=== PATIENT | female | born 1970 | race Caucasian/White ===

== ENCOUNTER 2018-09-20 06:46 | Emergency (ER) | payer OTHER, BC ==
[2018-09-20 07:00] VITALS: BP 137/85
[2018-09-20] MEDS ORDERED: AMOXICILLIN/K CLAV 875/125MG TABLET. PO ONE (07:15)
[2018-09-20] MEDS ORDERED: DIPHTH,PERTUSS(ACELL),TET TOX 0.5 ML DISP.SYRIN. VAX IM ONE (07:15)
[2018-09-20] MEDS ORDERED: diphenhydrAMINE HCL 25 MG CAPSULE PO ONE (07:15)
[2018-09-20] MEDS ORDERED: AMOX1TAB61 PO (07:22)
--- NOTE | 2018-09-20 07:24 | PHYS DOC ---
Past History Past Medical History: Hypothyroid Past Surgical History: Appendectomy, Cholecystectomy, , Hysterectomy, Tonsillectomy Alcohol Use: Occasionally Drug Use: None Adult General Chief Complaint Chief Complaint: LACERATION/AVULSION HPI HPI Patient is a 48-year-old female who presents after cutting her finger on a dog bone. Patient states that she was playing with her dog and there is sharp area on the bone and cut her finger on the bone. She states the injury occurred last night and she was getting a little bit concerned because she has developed some swelling and redness to her finger since sustaining the injury. She reports pain as being mild. She denies any fever. Review of Systems Review of Systems Constitutional: Denies fever or chills [] Cardiovascular: No additional information not addressed in HPI [] Musculoskeletal: Positive right index finger pain[] Integument: Positive finger laceration[] Current Medications Current Medications Current Medications Medications (Trade) Dose Ordered Sig/Skylar Start Time Stop Time Status Last Admin Dose Admin Amoxicillin/ Clavulanate Potassium (Augmentin 875/ 125mg) 1 tab 1X ONCE 09/20/18 07:15 09/20/18 07:16 UNV Diphenhydramine HCl (Benadryl) 25 mg 1X ONCE 09/20/18 07:15 09/20/18 07:16 UNV Diphtheria/ Tetanus/Acell Pertussis (Boostrix) 0.5 ml ONCE ONCE 09/20/18 07:15 09/20/18 07:16 UNV Allergies Allergies Allergies Coded Allergies Type Severity Reaction Last Updated Verified Penicillins Allergy Unknown 09/20/18 Yes Physical Exam Physical Exam Constitutional: Well developed, well nourished, no acute distress, non-toxic appearance. [] Cardiovascular: Regular rate and rhythm [] Lungs & Thorax: Bilateral breath sounds clear to auscultation [] Skin: Right index finger demonstrates a superficial laceration with no active bleeding. There does appear to be some granulation tissue that is present. There is some soft tissue swelling and surrounding erythema. [] Current Patient Data Vital Signs Vital Signs Date Time Temp Pulse Resp B/P (MAP) Pulse Ox O2 Delivery O2 Flow Rate FiO2 09/20/18 07:00 98.0 65 16 99 Room Air EKG EKG [] Radiology/Procedures Radiology/Procedures [] Course & Med Decision Making Course & Med Decision Making Pertinent Labs and Imaging studies reviewed. (See chart for details) Although no animal bite occurred, patient does indicate that DrRadha had been chewing on the bone; therefore, I do suspect that patient may have been exposed to Pasteurella multocida. We'll plan on treating with Augmentin. Patient states that she does not have H Rue penicillin allergy, stating that she just gets a rash but can take penicillin with Benadryl. Dragon Disclaimer Dragon Disclaimer This electronic medical record was generated, in whole or in part, using a voice recognition dictation system. Departure Departure: Impression: Primary Impression: Finger laceration Disposition: HOME, SELF-CARE Condition: STABLE Referrals: NON,STAFF (PCP) Patient Instructions: Laceration Care, Adult Scripts Amoxicillin/Potassium Clav (AUGMENTIN 875-125 TABLET) 1 Each Tablet 1 TAB PO BID for infection, #20 TAB Prov: FLOYD HARDEN Jr. DO 09/20/18 Problem Qualifiers Primary Impression: Finger laceration Encounter type: initial encounter Finger: index finger Damage to nail status: without damage Foreign body presence: without foreign body Laterality: right Qualified Codes: S61.210A - Laceration without foreign body of right index finger without damage to nail, initial encounter FLOYD HARDEN Jr. DO Sep 20, 2018 07:24
== END 2018-09-20 07:27 | disposition home or self-care (01) ==
LOC: ER 06:46
DX: S61.211A Laceration without foreign body of left index finger without damage to nail, initial encounter (principal); E03.9 Hypothyroidism, unspecified; Z88.0 Allergy status to penicillin; W54.1XXA Struck by dog, initial encounter; Y93.89 Activity, other specified; Y92.89 Other specified places as the place of occurrence of the external cause; Y99.8 Other external cause status
CPT/HCPCS: 90471; 90715; 99283; Q0163

== ENCOUNTER 2019-01-13 05:51 | Emergency (ER) | payer OTHER, BC ==
[~2019-01-13 05:51] MED LIST: AMOX1TAB61 PO
--- NOTE | 2019-01-13 05:55 | ED.ADGEN ---
Past History Past Medical History: Hypothyroid Past Surgical History: Appendectomy, Cholecystectomy, , Hysterectomy, Tonsillectomy Alcohol Use: Occasionally Drug Use: None Adult General Chief Complaint Chief Complaint ". I may have drank out of a pt. coffee cup... 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 Pt. accidently drank out pt. coffee cup that had been placed at her work station in the ED. Pt. has had prior hepatitis B vaccination. Pt. had tetanus in past 10 yrs. Prior PPD have been negative. Review of Systems Review of Systems Constitutional: Denies fever or chills [] Eyes: Denies change in visual acuity, redness, or eye pain [] HENT: Hx. of recent nasal congestion Respiratory: Denies cough or shortness of breath [] Cardiovascular: No additional information not addressed in HPI [] GI: Denies abdominal pain, nausea, vomiting, bloody stools or diarrhea [] : Denies dysuria or hematuria [] Musculoskeletal: Denies back pain or joint pain [] Integument: Denies rash or skin lesions [] Neurologic: Denies headache, focal weakness or sensory changes [] Endocrine: Denies polyuria or polydipsia [] All other systems were reviewed and found to be within normal limits, except as documented in this note. Family History Family History Non-contributory Current Medications Current Medications See Nursing for home meds Allergies Allergies Allergies Coded Allergies Type Severity Reaction Last Updated Verified Penicillins Allergy Unknown 09/20/18 Yes Physical Exam Physical Exam Constitutional:, no acute distress, non-toxic appearance. [] HENT: Normocephalic, atraumatic, bilateral external ears normal, oropharynx moist, no oral exudates, nose nasal congestion. Eyes: PERRLA, EOMI, conjunctiva normal, no discharge. [] Neck: Normal range of motion, no tenderness, supple, no stridor. [] Cardiovascular:Heart rate regular rhythm, no murmur [] Lungs & Thorax: Bilateral breath sounds equal at apexes, with few wheezes on auscultation [] Abdomen: Bowel sounds normal, soft, no tenderness, no masses, no pulsatile masses. [] Scar. Skin: Warm, dry, no erythema, no rash. [] Back: No tenderness, no CVA tenderness. [] Extremities: No tenderness, no cyanosis, no clubbing, ROM intact, no edema. [] Neurologic: Alert and oriented X 3, normal motor function, normal sensory function, no focal deficits noted. [] Psychologic: Affect normal, judgement normal, mood normal. [] Current Patient Data Vital Signs Vital Signs Date Time Temp Pulse Resp B/P (MAP) Pulse Ox O2 Delivery O2 Flow Rate FiO2 01/13/19 06:45 97.7 83 16 100 01/13/19 06:40 158/87 (110) Room Air EKG EKG [] Radiology/Procedures Radiology/Procedures [] Course & Med Decision Making Course & Med Decision Making Pertinent Labs and Imaging studies reviewed. (See chart for details) Pt. to follow up pending labs and follow with Work comp., Recommend follow up body fluid labs as per work comp. and primary. Safe sex. Consider baseline repeat PPD. [] Final Impression Final Impression 1. Possible Body Fluid Exposure[] Dragon Disclaimer Dragon Disclaimer This electronic medical record was generated, in whole or in part, using a voice recognition dictation system. 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 Pt. to follow with work comp. Discharge Information Condition at Discharge: Improved, Stable Disposition/Orders: D/C to Home Dischare Medications Active Scripts Active Augmentin 875-125 Tablet (Amoxicillin/Potassium Clav) 1 Each Tablet 1 Tab PO BID Dragon Disclaimer This chart was dictated in whole or in part using Voice Recognition software in a busy, high-work load, and often noisy Emergency Department environment. It may contain unintended and wholly unrecognized errors or omissions. CIARA LOZA MD Jan 13, 2019 05:55
[2019-01-13 06:45] VITALS: BP 136/88
== END 2019-01-13 07:00 | disposition home or self-care (01) ==
LOC: ER 05:51
DX: Z77.21 Contact with and (suspected) exposure to potentially hazardous body fluids (principal); E03.9 Hypothyroidism, unspecified; Z88.0 Allergy status to penicillin
CPT/HCPCS: 99283

== ENCOUNTER 2019-03-20 17:25 | Emergency (ER) | payer BC, OTHER ==
--- NOTE | 2019-03-20 17:38 | ED.ADGEN ---
Past History Past Medical History: Hypothyroid, Other Past Surgical History: Appendectomy, Cholecystectomy, , Hysterectomy, Tonsillectomy Alcohol Use: Occasionally Drug Use: None Adult General Chief Complaint Chief Complaint ".. I have this pain behind my Rt. knee, calf and thigh... and some swelling.. I was on air flight about a week ago.... 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 leg, thigh, knee, calf " ache" and some edema. No history of previous coagulopathy with family members or self. Has been on a recent air flight. Patient denies any immunosuppression. Does not smoke. Normal ly healthy. Pulses in right foot equal psoas and left foot. No specific history of trauma. Except by '[employer]' the family dog. Review of Systems Review of Systems Constitutional: Denies fever or chills [] Eyes: Denies change in visual acuity, redness, or eye pain [] HENT: Denies nasal congestion or sore throat [] Respiratory: Denies cough or shortness of breath [] Cardiovascular: No additional information not addressed in HPI [] GI: Denies abdominal pain, nausea, vomiting, bloody stools or diarrhea [] : Denies dysuria or hematuria [] Musculoskeletal: Denies back pain or joint pain []Complaints of Rt. knee pain and edema Integument: Denies rash or skin lesions [] Neurologic: Denies headache, focal weakness or sensory changes [] Endocrine: Denies polyuria or polydipsia [] All other systems were reviewed and found to be within normal limits, except as documented in this note. Family History Family History Noncontributory to presentation Current Medications Current Medications See nursing for home meds Allergies Allergies Allergies Coded Allergies Type Severity Reaction Last Updated Verified Penicillins Allergy Unknown 09/20/18 Yes Physical Exam Physical Exam Constitutional: Well developed, well nourished, mild distress, non-toxic appearance. [] HENT: Normocephalic, atraumatic, bilateral external ears normal, oropharynx moist, no oral exudates, nose normal. [] Eyes: PERRLA, EOMI, conjunctiva normal, no discharge. [] Neck: Normal range of motion, no tenderness, supple, no stridor. [] Cardiovascular:Heart rate regular rhythm, no murmur [] Lungs & Thorax: Bilateral breath sounds clear to auscultation [] Abdomen: Bowel sounds normal, soft, no tenderness, no masses, no pulsatile masses. [] Old surgical scar. Skin: Warm, dry, no erythema, no rash. [] Back: No tenderness, no CVA tenderness. [] Extremities: No tenderness, no cyanosis, no clubbing, ROM intact, no edema. []Except findings in right leg as per history of present illness. Does walk with a slight limp Neurologic: Alert and oriented X 3, normal motor function, normal sensory function, no focal deficits noted. [] Psychologic: Affect normal, judgement normal, mood normal. [] Current Patient Data Vital Signs Vital Signs Date Time Temp Pulse Resp B/P (MAP) Pulse Ox O2 Delivery O2 Flow Rate FiO2 03/20/19 18:07 73 100 03/20/19 17:25 20 142/82 (102) Room Air Lab Results Laboratory Tests Test 03/20/19 17:50 White Blood Count 5.0 x10^3/uL (4.0-11.0) Red Blood Count 4.65 x10^6/uL (3.50-5.40) Hemoglobin 14.7 g/dL (12.0-15.5) Hematocrit 43.7 % (36.0-47.0) Mean Corpuscular Volume 94 fL (79-100) Mean Corpuscular Hemoglobin 32 pg (25-35) Mean Corpuscular Hemoglobin Concent 34 g/dL (31-37) Red Cell Distribution Width 13.7 % (11.5-14.5) Platelet Count 215 x10^3/uL (140-400) Neutrophils (%) (Auto) 58 % (31-73) Lymphocytes (%) (Auto) 29 % (24-48) Monocytes (%) (Auto) 8 % (0-9) Eosinophils (%) (Auto) 3 % (0-3) Basophils (%) (Auto) 1 % (0-3) Neutrophils # (Auto) 2.9 x10^3uL (1.8-7.7) Lymphocytes # (Auto) 1.5 x10^3/uL (1.0-4.8) Monocytes # (Auto) 0.4 x10^3/uL (0.0-1.1) Eosinophils # (Auto) 0.2 x10^3/uL (0.0-0.7) Basophils # (Auto) 0.1 x10^3/uL (0.0-0.2) EKG EKG [] Radiology/Procedures Radiology/Procedures [][address] [id number] IMAGING REPORT Signed PATIENT: DARCI FARIAS ACCOUNT: [id number] : 1970 LOCATION: ER AGE: 49 SEX: F EXAM STATUS: REG ER ORD. PHYSICIAN: NAN JOHNSON DO REASON: RLE SWELLING PROCEDURE: VENOUS LOWER EXTREMITY RIGHT RIGHT LEG VENOUS DOPPLER STUDY: Clinical indications: Right leg swelling. Findings: Duplex sonography (including herbert scale evaluation and color flow and waveform spectral analysis) of the proximal aspect of the greater saphenous vein and proximal aspect of the profunda femoral vein and the entire length of the common femoral and superficial femoral and popliteal veins and the tibioperoneal trunk and the proximal aspect of the posterior tibial and peroneal veins of the right leg was performed. Normal compressibility, augmentation of color Doppler flow after calf compression, and respiratory variation of Doppler flow is seen. Thus, there are no sonographic findings of deep venous thrombosis within these veins. Impression: There are no sonographic findings of deep venous thrombosis within the veins discussed above of the right lower extremity. Electronically signed by: Makayla Whipple MD (03/20/2019 6:48 PM) [facility] DICTATED AND SIGNED BY: MAKAYLA WHIPPLE MD DATE: 03/20/19 1848 CC: NAN JOHNSON DO; CIARA LOZA MD; PCP,UNKNOWN ~ My interpretation of x ray films shows mild DJD. No fx or dislocation. See formal report when available. Course & Med Decision Making Course & Med Decision Making Pertinent Labs and Imaging studies reviewed. (See chart for details). Rest, elevation, carmita wrap, ice packs, tylenol and ibuprofen for pain. Vicoprofen for marked pain. Follow up with primary. Consider an orthopedic consult if persistent edema and discomfort. [] Final Impression Final Impression 1. Right leg[]/ Knee inflammation- vs Injury Dragon Disclaimer Dragon Disclaimer This electronic medical record was generated, in whole or in part, using a voice recognition dictation system. Discharge Summary Visit Information Final Diagnosis Problems Medical Problems: (1) Knee arthropathy Status: Acute (2) Right leg pain Status: Acute Brief Hospital Course Allergies Allergies Coded Allergies Type Severity Reaction Last Updated Verified Penicillins Allergy Unknown 09/20/18 Yes Vital Signs Vital Signs Date Time Temp Pulse Resp B/P (MAP) Pulse Ox O2 Delivery O2 Flow Rate FiO2 03/20/19 18:07 73 100 03/20/19 17:25 20 142/82 (102) Room Air Lab Results Laboratory Tests Test 03/20/19 17:50 White Blood Count 5.0 x10^3/uL (4.0-11.0) Red Blood Count 4.65 x10^6/uL (3.50-5.40) Hemoglobin 14.7 g/dL (12.0-15.5) Hematocrit 43.7 % (36.0-47.0) Mean Corpuscular Volume 94 fL (79-100) Mean Corpuscular Hemoglobin 32 pg (25-35) Mean Corpuscular Hemoglobin Concent 34 g/dL (31-37) Red Cell Distribution Width 13.7 % (11.5-14.5) Platelet Count 215 x10^3/uL (140-400) Neutrophils (%) (Auto) 58 % (31-73) Lymphocytes (%) (Auto) 29 % (24-48) Monocytes (%) (Auto) 8 % (0-9) Eosinophils (%) (Auto) 3 % (0-3) Basophils (%) (Auto) 1 % (0-3) Neutrophils # (Auto) 2.9 x10^3uL (1.8-7.7) Lymphocytes # (Auto) 1.5 x10^3/uL (1.0-4.8) Monocytes # (Auto) 0.4 x10^3/uL (0.0-1.1) Eosinophils # (Auto) 0.2 x10^3/uL (0.0-0.7) Basophils # (Auto) 0.1 x10^3/uL (0.0-0.2) Brief Hospital Course Ms. Farias is a 49 old female who presented with Rt knee pain when in full squat position and edema. Discharge Information Condition at Discharge: Stable Disposition/Orders: D/C to Home Dischare Medications Active Scripts Active Hydrocodone-Ibuprofen 7.5-200 (Hydrocodone/Ibuprofen) 1 Each Tablet 1 Tab PO PRN Q6HRS PRN Augmentin 875-125 Tablet (Amoxicillin/Potassium Clav) 1 Each Tablet 1 Tab PO BID Discharge Summary Visit Information Final Diagnosis Problems Medical Problems: (1) Knee arthropathy Status: Acute (2) Right leg pain Status: Acute Brief Hospital Course Allergies Allergies Coded Allergies Type Severity Reaction Last Updated Verified Penicillins Allergy Unknown 09/20/18 Yes Vital Signs Vital Signs Date Time Temp Pulse Resp B/P (MAP) Pulse Ox O2 Delivery O2 Flow Rate FiO2 03/20/19 18:07 73 100 03/20/19 17:25 20 142/82 (102) Room Air Lab Results Laboratory Tests Test 03/20/19 17:50 White Blood Count 5.0 x10^3/uL (4.0-11.0) Red Blood Count 4.65 x10^6/uL (3.50-5.40) Hemoglobin 14.7 g/dL (12.0-15.5) Hematocrit 43.7 % (36.0-47.0) Mean Corpuscular Volume 94 fL (79-100) Mean Corpuscular Hemoglobin 32 pg (25-35) Mean Corpuscular Hemoglobin Concent 34 g/dL (31-37) Red Cell Distribution Width 13.7 % (11.5-14.5) Platelet Count 215 x10^3/uL (140-400) Neutrophils (%) (Auto) 58 % (31-73) Lymphocytes (%) (Auto) 29 % (24-48) Monocytes (%) (Auto) 8 % (0-9) Eosinophils (%) (Auto) 3 % (0-3) Basophils (%) (Auto) 1 % (0-3) Neutrophils # (Auto) 2.9 x10^3uL (1.8-7.7) Lymphocytes # (Auto) 1.5 x10^3/uL (1.0-4.8) Monocytes # (Auto) 0.4 x10^3/uL (0.0-1.1) Eosinophils # (Auto) 0.2 x10^3/uL (0.0-0.7) Basophils # (Auto) 0.1 x10^3/uL (0.0-0.2) Brief Hospital Course 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 Discharge Information Condition at Discharge: Stable Disposition/Orders: D/C to Home Dischare Medications Active Scripts Active Hydrocodone-Ibuprofen 7.5-200 (Hydrocodone/Ibuprofen) 1 Each Tablet 1 Tab PO PRN Q6HRS PRN Augmentin 875-125 Tablet (Amoxicillin/Potassium Clav) 1 Each Tablet 1 Tab PO BID Dragon Disclaimer This chart was dictated in whole or in part using Voice Recognition software in a busy, high-work load, and often noisy Emergency Department environment. It may contain unintended and wholly unrecognized errors or omissions. Dragon Disclaimer This chart was dictated in whole or in part using Voice Recognition software in a busy, high-work load, and often noisy Emergency Department environment. It may contain unintended and wholly unrecognized errors or omissions. CIARA LOZA MD Mar 20, 2019 17:38
[2019-03-20 18:07] VITALS: BP 142/82
[2019-03-20 18:08] LABS: BASO # 0.1 x10^3/uL (0.0-0.2); BASO % 1 % (0-3); EOS # 0.2 x10^3/uL (0.0-0.7); EOS % 3 % (0-3); HEMATOCRIT 43.7 % (36.0-47.0); HEMOGLOBIN 14.7 g/dL (12.0-15.5); LYMPH # 1.5 x10^3/uL (1.0-4.8); LYMPH % 29 % (24-48); MEAN CORPUSCULAR HEMOGLOBIN 32 pg (25-35); MEAN CORPUSCULAR HGB CONC 34 g/dL (31-37); MEAN CORPUSCULAR VOLUME 94 fL (79-100); MONO # 0.4 x10^3/uL (0.0-1.1); MONO % 8 % (0-9); NEUT # 2.9 x10^3uL (1.8-7.7); NEUT % 58 % (31-73); PLATELET COUNT 215 x10^3/uL (140-400); RED BLOOD COUNT 4.65 x10^6/uL (3.50-5.40); RED CELL DISTRIBUTION WIDTH 13.7 % (11.5-14.5)
--- NOTE | 2019-03-20 18:51 | RAD ---
RIGHT LEG VENOUS DOPPLER STUDY: Clinical indications: Right leg swelling. Findings: Duplex sonography (including herbert scale evaluation and color flow and waveform spectral analysis) of the proximal aspect of the greater saphenous vein and proximal aspect of the profunda femoral vein and the entire length of the common femoral and superficial femoral and popliteal veins and the tibioperoneal trunk and the proximal aspect of the posterior tibial and peroneal veins of the right leg was performed. Normal compressibility, augmentation of color Doppler flow after calf compression, and respiratory variation of Doppler flow is seen. Thus, there are no sonographic findings of deep venous thrombosis within these veins. Impression: There are no sonographic findings of deep venous thrombosis within the veins discussed above of the right lower extremity. Electronically signed by: Lester Whipple MD (03/20/2019 6:48 PM) [facility]
[2019-03-20] MEDS ORDERED: HYDR-1179 PO (19:28)
--- NOTE | 2019-03-21 04:39 | RAD ---
KNEE RIGHT 4V 03/20/2019 7:16 PM INDICATION: Pain COMPARISON: None available. TECHNIQUE: 4 views of the right knee are provided. FINDINGS: There is no acute fracture or dislocation. Bone mineralization is within normal limits. Mild medial femorotibial marginal osteophytosis. Small knee joint effusion. Joint spaces are maintained. Regional soft tissues are within normal limits. There is no soft tissue gas or osseous erosion. IMPRESSION: No acute fracture or dislocation. Mild medial femorotibial osteoarthrosis. Small knee joint effusion. Electronically signed by: Domenica Sun MD (03/21/2019 4:36 AM) [facility]
== END 2019-03-20 19:36 | disposition home or self-care (01) ==
LOC: ER 17:25
DX: M12.861 Other specific arthropathies, not elsewhere classified, right knee (principal); M79.604 Pain in right leg; E03.9 Hypothyroidism, unspecified; Z88.0 Allergy status to penicillin
CPT/HCPCS: 36415; 73564; 85025; 93971; 99285-25

== ENCOUNTER 2019-08-25 01:25 | Emergency (ER) | payer BC ==
[~2019-08-25 01:25] MED LIST changes: +HYDR-1179 PO
[2019-08-25 01:28] VITALS: BP 138/77
--- NOTE | 2019-08-25 01:48 | PHYS DOC ---
Past History Past Medical History: Hypothyroid Past Surgical History: Appendectomy, Cholecystectomy, , Hysterectomy, Tonsillectomy, Other Additional Past Surgical Histo: bladder sling with mesh, pelvic surgery Alcohol Use: Occasionally Drug Use: None Adult General Chief Complaint Chief Complaint: PELVIC PAIN HPI HPI 49-year-old female presents with left pelvic for pain. The patient has had intermittent trouble with this area for a few years. She is not sure exactly what triggers it. She gets spasms in the left side of her pubic bone radiating through her pelvic floor to the posterior rectum. She can palpate the spasmodic muscle which feels tight in comparison to the other side. Sometimes manual stretching techniques help and sometimes it does not. She presents tonight because she has had this pain was constantly for the past 2 days. She has never tried steroids for anti-inflammatory. She has been taking ibuprofen. She denies fever or chills. No falls or trauma. Review of Systems Review of Systems Constitutional: Denies fever or chills [] Eyes: Denies change in visual acuity, redness, or eye pain [] HENT: Denies nasal congestion or sore throat [] Respiratory: Denies cough or shortness of breath [] Cardiovascular: No additional information not addressed in HPI [] GI: Denies abdominal pain, nausea, vomiting, bloody stools or diarrhea [] : Pelvic floor muscle pain[] Musculoskeletal: Denies back pain or joint pain [] Integument: Denies rash or skin lesions [] Neurologic: Denies headache, focal weakness or sensory changes [] Endocrine: Denies polyuria or polydipsia [] All other systems were reviewed and found to be within normal limits, except as documented in this note. Current Medications Current Medications Current Medications Medications (Trade) Dose Ordered Sig/[facility] Start Time Stop Time Status Last Admin Dose Admin Methylprednisolone Sodium Succinate (SOLU-Medrol 125MG VIAL) 125 mg 1X ONCE 08/25/19 02:00 08/25/19 02:01 Allergies Allergies Allergies Coded Allergies Type Severity Reaction Last Updated Verified Penicillins Allergy Intermediate 08/25/19 Yes Physical Exam Physical Exam Constitutional: Well developed, well nourished, no acute distress, non-toxic appearance. [] HENT: Normocephalic, atraumatic, bilateral external ears normal, oropharynx moist, no oral exudates, nose normal. [] Eyes: PERRLA, EOMI, conjunctiva normal, no discharge. [] Neck: Normal range of motion, no tenderness, supple, no stridor. [] Cardiovascular:Heart rate regular rhythm, no murmur [] Lungs & Thorax: Bilateral breath sounds clear to auscultation [] Abdomen: Bowel sounds normal, soft, no tenderness, no masses, no pulsatile masses. [] Skin: Warm, dry, no erythema, no rash. [] Back: No tenderness, no CVA tenderness. [] Extremities: No tenderness, no cyanosis, no clubbing, ROM intact, no edema. [] Neurologic: Alert and oriented X 3, normal motor function, normal sensory function, no focal deficits noted. [] Psychologic: Affect normal, judgement normal, mood normal. : Tenderness along the left side of the pelvic floor muscles from the pubic symphysis to the rectum [] Current Patient Data Vital Signs Vital Signs Date Time Temp Pulse Resp B/P (MAP) Pulse Ox O2 Delivery O2 Flow Rate FiO2 08/25/19 01:28 97.8 68 16 99 Room Air EKG EKG [] Radiology/Procedures Radiology/Procedures [] Course & Med Decision Making Course & Med Decision Making Pertinent Labs and Imaging studies reviewed. (See chart for details) Since it is not tried before, try a Solu-Medrol IM injection of 125 mg. We'll see if this helps decrease the inflammatory state leading to spasm. The patient is stable for discharge at this time. [] Dragon Disclaimer Dragon Disclaimer This electronic medical record was generated, in whole or in part, using a voice recognition dictation system. Departure Departure: Impression: Primary Impression: Spastic pelvic floor syndrome Disposition: HOME, SELF-CARE Condition: STABLE Referrals: PCP,UNKNOWN (PCP) Patient Instructions: Muscle Cramps NAN JOHNSON DO Aug 25, 2019 01:48
[2019-08-25] MEDS ORDERED: methylPREDNISolone SOD SUCC PF 125 MG/2 ML VIAL. IM ONE (02:00)
== END 2019-08-25 01:53 | disposition home or self-care (01) ==
LOC: ER 01:25
DX: K31.89 Other diseases of stomach and duodenum (principal); R10.2 Pelvic and perineal pain; E03.9 Hypothyroidism, unspecified; Z90.49 Acquired absence of other specified parts of digestive tract; Z90.89 Acquired absence of other organs; Z98.890 Other specified postprocedural states; Z90.710 Acquired absence of both cervix and uterus; Z88.0 Allergy status to penicillin
CPT/HCPCS: 96372; 99283; J2930

== ENCOUNTER → 2021-09-07 | Outpatient (CLI) | payer BC | LOC: LAB 11:45 | PROVIDERS: ATTEND Internal Medicine Cardiovascular Disease | DX: U07.1 COVID-19 (principal) | CPT/HCPCS: 87426 ==

== ENCOUNTER 2022-01-30 01:53 | Emergency (ER) | payer BC ==
[~2022-01-30] VITALS: Ht 167.6 cm; Wt 81.0 kg
[2022-01-30 01:54] VITALS: BP 124/72
[2022-01-30] MEDS: IOHEXOL 300 MG/ML 75 ML VIAL. IV ONE (02:35)
[2022-01-30] MEDS ORDERED: CONTRAST GIVEN. MC PRN (02:45)
--- NOTE | 2022-01-30 02:49 | PHYS DOC ---
Past History Past Medical History: Hypothyroid Past Surgical History: Appendectomy, Cholecystectomy, , Hysterectomy, Tonsillectomy, Other Additional Past Surgical Histo: bladder sling with mesh, pelvic surgery Alcohol Use: Occasionally Drug Use: None Adult General Chief Complaint Chief Complaint: GROIN PAIN HPI HPI Patient is a 51-year-old female who presents with a chief complaint of left- sided lumbar pain and sacral pain, 8 out of 10 at its worst, sharp in nature with some muscle spasms that has been going on intermittently over the last couple of years. States that she does have some pain just above her pubic bone that radiates to her back and vice versa with significant spasms. Exacerbated by twisting motions and hip flexion and abduction. Denies any recent traumas, travels, illness, fevers, chest pain, shortness of breath, vaginal bleeding, discharge or pain. Denies a history of STIs or concern thereof. Review of Systems Review of Systems Review of systems otherwise unremarkable except noted in HPI Allergies Allergies Allergies Coded Allergies Type Severity Reaction Last Updated Verified Penicillins Allergy Intermediate 08/25/19 Yes Physical Exam Physical Exam Constitutional: Well developed, well nourished, no acute distress, non-toxic appearance. [] HENT: Normocephalic, atraumatic, bilateral external ears normal, oropharynx moist, no oral exudates, nose normal. [] Neck: Normal range of motion, no tenderness, Cardiovascular:Heart rate regular rhythm, no murmur [] Lungs & Thorax: Bilateral breath sounds clear to auscultation [] Abdomen: soft, mild centralized tenderness with no rebound or guarding, no masses, no pulsatile masses. [] Back: Lower lumbar left-sided tenderness on palpation as well as left-sided sacral tenderness on palpation Extremities: No tenderness, no cyanosis, no clubbing, ROM intact, no edema. [] Neurologic: Alert and oriented X 3, normal motor function, normal sensory function, no problems sitting, standing or walking but does have some discomfort when going from sitting to standing or hip flexion, no focal deficits noted. [] Psychologic: Affect normal, judgement normal, mood normal. [] Current Patient Data Vital Signs Vital Signs Date Time Temp Pulse Resp B/P (MAP) Pulse Ox O2 Delivery O2 Flow Rate FiO2 01/30/22 01:54 138/77 (97) EKG EKG [] Radiology/Procedures Radiology/Procedures [] Heart Score C/O Chest Pain: No Risk Factors: Risk Factors: DM, Current or recent (<one month) smoker, HTN, HLP, family history of CAD, obesity. Risk Scores: Risk Factors: DM, Current or recent (<one month) smoker, HTN, HLP, family history of CAD, obesity. Course & Med Decision Making Course & Med Decision Making Patient is a 51-year-old female who presents with low back and sacral pain Vital signs nonconcerning. Physical exam noted above. CT notable for fullness of the vaginal cuff with soft tissue mass around 4 cm. Discussed all findings with patient and offered ultrasound, but patient states she was given a talk to her doctor to get the MRI next week Discussed symptom management at home. Advised to call primary care physician in the morning to update. Gave return precautions to the ED Patient grateful, verbalized understanding and agreed with plan of discharge Dragon Disclaimer Dragon Disclaimer This electronic medical record was generated, in whole or in part, using a voice recognition dictation system. Departure Departure: Impression: Primary Impression: Back pain Additional Impressions: Sacral pain Pelvic pain Abdominal mass Disposition: HOME / SELF CARE / HOMELESS Condition: STABLE Referrals: PCP,UNKNOWN (PCP) NOEÍM ALEJANDRE Patient Instructions: Back Pain, Adult Additional Instructions: Thank you for coming into the emergency department tonight allowing us to take care of you. Please read the attached information carefully over things we discussed. Please use Tylenol, ibuprofen and your muscle relaxers at home as we discussed. You can also use ice. Please do some physical therapy as we discussed. Please follow-up with your primary care physician in the morning to discuss need for MRI. Please come back with new or concerning symptoms as discussed. Scripts Hydrocodone Bit/Acetaminophen (HYDROCODONE-APAP 5-325 ) 1 Each Tablet 1 TAB PO PRN Q6HRS PRN for abdominal mass for 10 Days, #40 TAB 0 Refills Prov: ODALYS DUGAN MD 01/30/22 Problem Qualifiers ODALYS DUGAN MD January 30, 2022 02:49
--- NOTE | 2022-01-30 03:28 | RAD ---
INDICATION: Reason: Lower abd, lumbar and sacrum pain around L4-5, SI joint and S3-5 / Spl. Instructi ons: / History: COMPARISON: None. TECHNIQUE: Axial CT images were obtained through the abdomen and pelvis with and without intravenous contrast. One or more of the following individualized dose reduction techniques were utilized for this examinat ion: 1. Automated exposure control; 2. Adjustment of the mA and/or kV according to patient size; 3 . Use of iterative reconstruction technique. FINDINGS: Pulmonary bleb right chest base. Vascular: Scattered calcific atherosclerosis. Hepatobiliary: Liver is mildly prominent in size. Postcholecystectomy changes. Subcentimeter liver le sions which are too small to characterize but are common finding. Pancreas: No peripancreatic edema. Spleen: Spleen unremarkable. Renal/Bladder: Nonobstructive right renal stone without hydronephrosis. Urinary bladder is decompress ed. Low density lesion of left kidney most commonly cystic in nature. Gastrointestinal: Colonic diverticulosis. Suture line right lower quadrant of the abdomen. Degenerative changes spine. IMPRESSION: * Nonobstructive right renal stone without hydronephrosis. * No evidence of bowel obstruction * There is fullness of the vaginal cuff region which appears somewhat masslike in nature measuring u p to about 4 cm. No comparison available for review to assess whether this is the baseline appearance of the patient's vaginal cuff or if there is a soft tissue mass in the area. Further workup option w ould include pelvic ultrasound or MRI. Electronically signed by: Andrew Tellez MD (01/30/2022 3:25 AM) [id number]
[2022-01-30] MEDS ORDERED: HYDR-2155 PO (04:15)
== END 2022-01-30 04:45 | disposition home or self-care (01) ==
LOC: ER 01:53
DX: M53.3 Sacrococcygeal disorders, not elsewhere classified (principal); R10.2 Pelvic and perineal pain; R19.09 Other intra-abdominal and pelvic swelling, mass and lump; M54.59 Other low back pain; E03.9 Hypothyroidism, unspecified; Z90.89 Acquired absence of other organs; Z90.49 Acquired absence of other specified parts of digestive tract; Z98.890 Other specified postprocedural states; Z90.710 Acquired absence of both cervix and uterus; Z88.0 Allergy status to penicillin
CPT/HCPCS: 36415; 74178; 85651; 86140; 99285; Q9967